=== PATIENT | female | born 1935 | race Caucasian/White ===

== ENCOUNTER 2019-07-08 17:06 | Inpatient (IN) ==
[2019-07-08] MEDS ORDERED: Naloxone 0.4 MG/ML INJ IVP PRN (22:17)
[2019-07-08] MEDS ORDERED: Ondansetron 4 MG/2 ML VIAL IVP PRN (22:17)
[2019-07-08] MEDS ORDERED: 0.9 % Sodium Chloride 1,000 ML IVC ONE (22:20)
[2019-07-08] MEDS ORDERED: *HR* Labetalol 20 MG/4 ML SYRINGE IVP ONE (22:31)
[2019-07-09 00:16] LABS: BUN/Creatinine Ratio 20 (6-26); Blood Urea Nitrogen 19 mg/dL (8-23); Carbon Dioxide 24 mEq/L (23-29); Chloride 104 mEq/L (98-107); Glucose 119 mg/dL (70-105); Osmolality,Calculated 295 (280-300); Potassium 2.5 mEq/L (3.5-5.1); Sodium 141 mEq/L (136-145); eGFR For African Americans > 60 (> 60); eGFR For Non-African Americans 56 (> 60)
[2019-07-09] MEDS ORDERED: Potassium Chloride 40 MEQ, Lidocaine 1% 2 ML in 0.9 % Sodium Chloride 500 ML IVPB ONE (00:21)
[2019-07-09] MEDS ORDERED: Acetaminophen 325 MG TABLET PO PRN (01:59)
[2019-07-09] MEDS ORDERED: Metoclopramide 10 MG/2 ML VIAL IVP PRN (03:45)
[2019-07-09 04:43] LABS: Hematocrit 32.5 % (35.3-44.9); Hemoglobin 10.9 g/dL (11.5-15.4); Mean Corpuscular HGB Conc 33.5 g/dL (31.6-35.5); Mean Corpuscular Hemoglobin 29.9 pg (28.0-33.3); Mean Corpuscular Volume 89.3 fL (83.0-100.0); Mean Platelet Volume 11.7 fL (9.4-12.4); Platelet Count 219 K/mcL (140-400); Red Blood Count 3.64 M/mcL (3.82-4.97); Red Cell Distribution Width 14.6 % (11.5-14.5)
[2019-07-09 05:10] LABS: BUN/Creatinine Ratio 19 (6-26); Blood Urea Nitrogen 19 mg/dL (8-23); Carbon Dioxide 24 mEq/L (23-29); Chloride 104 mEq/L (98-107); Glucose 126 mg/dL (70-105); Osmolality,Calculated 298 (280-300); Potassium 2.8 mEq/L (3.5-5.1); Sodium 142 mEq/L (136-145); Troponin I 0.06 ng/mL (< 0.04); eGFR For African Americans > 60 (> 60); eGFR For Non-African Americans 54 (> 60)
[2019-07-09] MEDS: *HR* Heparin 5,000 UNIT/ML VIAL SQ SCH ×2 (06:42→17:12)
[2019-07-09] MEDS: Pantoprazole 40 MG VIAL IVP SCH ×2 (06:42→17:12)
[2019-07-09] MEDS ORDERED: Potassium Chloride Elixir 20 MEQ/15 ML UDC PO ONE ×2 (08:46→17:00)
[2019-07-09] MEDS: amLODIPine 5 MG TABLET PO SCH (09:24)
[2019-07-09 11:22] LABS: Estimated Average Glucose 103 mg/dl
[2019-07-09] MEDS ORDERED: Simethicone 80 MG TAB.CHEW PO PRN (13:37)
[2019-07-09] MEDS: OLANZapine 5 MG TAB.RAPDIS PO SCH (20:03)
[2019-07-09] MEDS: *HR* LORazepam 0.5 MG TABLET PO SCH (20:03)
[2019-07-10] MEDS: *HR* Heparin 5,000 UNIT/ML VIAL SQ SCH ×2 (05:35→17:29)
[2019-07-10] MEDS: Pantoprazole 40 MG VIAL IVP SCH ×2 (05:36→17:29)
[2019-07-10 06:04] LABS: Bilirubin,Urine Negative (Negative); Blood,Urine Negative (Negative); Clarity,Urine Cloudy (Clear); Color,Urine Yellow (Yellow); Glucose,Urine (UA) Normal (Normal); Ketones,Urine Trace mg/dL (Negative); Leukocyte Esterase,Urine Large (Negative); Nitrite,Urine Negative (Negative); Protein,Urine 30 mg/dL (Neg-Trace); Specific Gravity,Urine 1.015 (1.010-1.025); Urobilinogen,Urine Normal (Normal)
[2019-07-10 06:05] LABS: Bacteria,Urine Many per hpf (None-Few); Hyaline Casts,Urine Few per lpf (None-Few); Squamous Epithelial Cell,Urine Many per lpf (None-Few); WBC,Urine 50-100 per hpf (0-3)
[2019-07-10 06:15] LABS: Mucus,Urine Few per lpf (Few); RBC,Urine 0-3 per hpf (0-3)
[2019-07-10 09:02] LABS: BUN/Creatinine Ratio 19 (6-26); Blood Urea Nitrogen 15 mg/dL (8-23); Calcium 9.2 mg/dL (8.6-10.3); Carbon Dioxide 26 mEq/L (23-29); Chloride 106 mEq/L (98-107); Glucose 108 mg/dL (70-105); Magnesium 1.5 mg/dL (1.6-2.6); Osmolality,Calculated 297 (280-300); Potassium 2.9 mEq/L (3.5-5.1); Sodium 143 mEq/L (136-145); eGFR For African Americans > 60 (> 60); eGFR For Non-African Americans > 60 (> 60)
[2019-07-10] MEDS ORDERED: Potassium Chloride 40 MEQ, Lidocaine 1% 2 ML in 0.9 % Sodium Chloride 500 ML IVPB ONE ×2 (09:22→17:00)
[2019-07-10] MEDS: Loratadine 10 MG TABLET PO SCH (10:10)
[2019-07-10] MEDS: amLODIPine 5 MG TABLET PO SCH (10:10)
[2019-07-10] MEDS: Ondansetron 4 MG/2 ML VIAL IVP SCH ×3 (14:44→23:57)
[2019-07-10] MEDS: Ampicillin/Sulbactam 3,000 MG in 0.9 % Sodium Chloride 100 ML IVPB SCH ×2 (14:45→17:30)
[2019-07-10] MEDS: OLANZapine 5 MG TAB.RAPDIS PO SCH (20:48)
[2019-07-10] MEDS: *HR* LORazepam 0.5 MG TABLET PO SCH (20:48)
[2019-07-11] MEDS: Ampicillin/Sulbactam 3,000 MG in 0.9 % Sodium Chloride 100 ML IVPB SCH ×2 (00:03→05:54)
[2019-07-11 03:10] LABS: BUN/Creatinine Ratio 16 (6-26); Blood Urea Nitrogen 13 mg/dL (8-23); Calcium 8.6 mg/dL (8.6-10.3); Carbon Dioxide 24 mEq/L (23-29); Chloride 112 mEq/L (98-107); Glucose 101 mg/dL (70-105); Magnesium 2.2 mg/dL (1.6-2.6); Osmolality,Calculated 294 (280-300); Potassium 3.5 mEq/L (3.5-5.1); Sodium 142 mEq/L (136-145); eGFR For African Americans > 60 (> 60); eGFR For Non-African Americans > 60 (> 60)
[2019-07-11] MEDS: *HR* Heparin 5,000 UNIT/ML VIAL SQ SCH (05:53)
[2019-07-11] MEDS: Pantoprazole 40 MG VIAL IVP SCH (05:53)
[2019-07-11] MEDS: Ondansetron 4 MG/2 ML VIAL IVP SCH (05:53)
[2019-07-11] MEDS ORDERED: carvediloL 6.25 MG TABLET PO SCH (08:00)
[2019-07-11] MEDS: Loratadine 10 MG TABLET PO SCH (09:15)
[2019-07-11] MEDS: amLODIPine 5 MG TABLET PO SCH (09:15)
[2019-07-11 11:03] VITALS: BP 177/77
[2019-07-11] MEDS ORDERED: Ampicillin/Sulbactam 3,000 MG in 0.9 % Sodium Chloride Mini Bag 100 ML IVPB SCH (18:00)
[2019-07-24] MEDS ORDERED: Cyanocobalamin (B-12) 1,000 MCG/ML VIAL IM SCH (09:00)
== END 2019-07-11 12:36 | disposition home health service (06) ==
LOC: 3BNU → SUATTDRO 19:00
PROVIDERS: ADMIT Internal Medicine; ATTEND Internal Medicine

== ENCOUNTER 2019-07-13 10:33 | Inpatient (IN) ==
[2019-07-13] MEDS ORDERED: Ondansetron 4 MG/2 ML VIAL IVP PRN (16:40)
[2019-07-13] MEDS ORDERED: Acetaminophen 325 MG TABLET PO PRN (16:40)
[2019-07-13] MEDS ORDERED: Naloxone 0.4 MG/ML INJ IVP PRN (16:40)
[2019-07-13 17:27] LABS: Basophils % 0.1 %; Eosinophils % 0.5 %; Hematocrit 31.8 % (35.3-44.9); Hemoglobin 10.7 g/dL (11.5-15.4); Immature Granulocytes % 0.5 % (0-4); Lymphocytes # 1.2 K/mcL (0.6-4.6); Lymphocytes % 16.2 %; Mean Corpuscular HGB Conc 33.6 g/dL (31.6-35.5); Mean Corpuscular Hemoglobin 29.6 pg (28.0-33.3); Mean Corpuscular Volume 88.1 fL (83.0-100.0); Mean Platelet Volume 11.6 fL (9.4-12.4); Monocytes # 0.8 K/mcL (0.0-1.3); Monocytes % 11.2 %; Neutrophils # 5.4 K/mcL (1.6-8.9); Platelet Count 206 K/mcL (140-400); Red Blood Count 3.61 M/mcL (3.82-4.97); Red Cell Distribution Width 14.4 % (11.5-14.5); Segmented Neutrophils % 71.5 %; White Blood Count 7.5 K/mcL (4.3-11.1)
[2019-07-13 17:45] LABS: Magnesium 1.6 mg/dL (1.6-2.6); Phosphorous 1.5 mg/dL (2.7-4.5)
[2019-07-13 17:46] LABS: Albumin 3.3 g/dL (3.5-5.7); Albumin/Globulin Ratio 1.4 (1.1-2.2); BUN/Creatinine Ratio 13 (6-26); Bilirubin,Direct 0.4 mg/dL (0.0-0.2); Bilirubin,Indirect 0.8 mg/dL (0.0-1.0); Bilirubin,Total 1.2 mg/dL (0.3-1.0); Blood Urea Nitrogen 13 mg/dL (8-23); Calcium 8.6 mg/dL (8.6-10.3); Carbon Dioxide 20 mEq/L (23-29); Chloride 104 mEq/L (98-107); Globulin 2.4 g/dL (2.4-3.5); Glucose 112 mg/dL (70-105); Osmolality,Calculated 275 (280-300); Potassium 2.5 mEq/L (3.5-5.1); Sodium 132 mEq/L (136-145); Total Protein 5.7 g/dL (6.4-8.9); eGFR For African Americans > 60 (> 60); eGFR For Non-African Americans 52 (> 60)
[2019-07-13] MEDS ORDERED: Potassium Phosphate 44 MEQ in 0.9 % Sodium Chloride 250 ML IVPB ONE (17:49)
[2019-07-13 17:59] LABS: Thyroid Stimulating Hormone 0.788 mcIU/mL (0.340-5.600)
[2019-07-13] MEDS: Potassium Chloride Elixir 20 MEQ/15 ML UDC PO SCH (21:41)
[2019-07-13 23:03] LABS: Alanine Aminotransferase 16 Units/L (7-52); Albumin 3.2 g/dL (3.5-5.7); Albumin/Globulin Ratio 1.3 (1.1-2.2); Alkaline Phosphatase 55 Units/L (34-104); Aspartate Amino Transferase 16 Units/L (13-39); BUN/Creatinine Ratio 12 (6-26); Bilirubin,Total 1.2 mg/dL (0.3-1.0); Blood Urea Nitrogen 12 mg/dL (8-23); Calcium 8.9 mg/dL (8.6-10.3); Carbon Dioxide 23 mEq/L (23-29); Chloride 105 mEq/L (98-107); Globulin 2.4 g/dL (2.4-3.5); Glucose 90 mg/dL (70-105); Osmolality,Calculated 277 (280-300); Potassium 3.6 mEq/L (3.5-5.1); Sodium 134 mEq/L (136-145); Total Protein 5.6 g/dL (6.4-8.9); eGFR For African Americans > 60 (> 60); eGFR For Non-African Americans 53 (> 60)
[2019-07-13] MEDS: *HR* Heparin 5,000 UNIT/ML VIAL SQ SCH (23:33)
[2019-07-14 05:18] LABS: Eosinophils # 0.4 K/mcL (0.0-0.6); Eosinophils % 5.5 %; Hematocrit 26.9 % (35.3-44.9); Immature Granulocytes % 0.6 % (0-4); Lymphocytes # 1.1 K/mcL (0.6-4.6); Lymphocytes % 15.4 %; Mean Corpuscular HGB Conc 32.7 g/dL (31.6-35.5); Mean Corpuscular Hemoglobin 29.1 pg (28.0-33.3); Mean Corpuscular Volume 89.1 fL (83.0-100.0); Mean Platelet Volume 11.6 fL (9.4-12.4); Monocytes # 0.7 K/mcL (0.0-1.3); Monocytes % 10.3 %; Neutrophils # 4.7 K/mcL (1.6-8.9); Platelet Count 177 K/mcL (140-400); Red Blood Count 3.02 M/mcL (3.82-4.97); Red Cell Distribution Width 14.7 % (11.5-14.5); Segmented Neutrophils % 68.2 %; White Blood Count 6.9 K/mcL (4.3-11.1)
[2019-07-14 05:22] LABS: Hemoglobin 8.8 g/dL (11.5-15.4)
[2019-07-14 05:30] LABS: BUN/Creatinine Ratio 15 (6-26); Blood Urea Nitrogen 13 mg/dL (8-23); Calcium 8.5 mg/dL (8.6-10.3); Carbon Dioxide 23 mEq/L (23-29); Chloride 104 mEq/L (98-107); Glucose 89 mg/dL (70-105); Magnesium 2.2 mg/dL (1.6-2.6); Osmolality,Calculated 280 (280-300); Phosphorous 4.6 mg/dL (2.7-4.5); Potassium 3.2 mEq/L (3.5-5.1); Sodium 135 mEq/L (136-145); eGFR For African Americans > 60 (> 60); eGFR For Non-African Americans > 60 (> 60)
[2019-07-14] MEDS: *HR* Heparin 5,000 UNIT/ML VIAL SQ SCH ×3 (05:33→20:12)
[2019-07-14 05:36] LABS: % Iron Saturation 71 % (15-50); Iron 111 mcg/dL (50-170); Transferrin 111 mg/dL (203-362)
[2019-07-14 05:49] LABS: Ferritin 518 ng/mL (10-120)
[2019-07-14 05:54] LABS: Folate 4.8 ng/mL (3.0-16.0)
[2019-07-14] MEDS: Pantoprazole 40 MG VIAL IVP SCH (10:03)
[2019-07-14] MEDS: Potassium Chloride Elixir 20 MEQ/15 ML UDC PO SCH (10:03)
[2019-07-14 10:21] LABS: Estimated Average Glucose 105 mg/dl
[2019-07-14] MEDS ORDERED: Simethicone 80 MG TAB.CHEW PO PRN (10:51)
[2019-07-14] MEDS ORDERED: Loratadine 10 MG TABLET PO PRN (10:51)
[2019-07-14] MEDS: Cholecalciferol (D-3) 1,000 UNIT (25MCG) TABLET PO SCH (11:39)
[2019-07-14] MEDS ORDERED: E-Z-PAQUE (BARIUM SULF) SUSP 1 BOTTLE PO ONE (12:21)
[2019-07-14] MEDS ORDERED: Simethicone/Sodium Bic/Citr Ac 1 EACH GRAN.EF.PK PO ONE (12:21)
[2019-07-14] MEDS ORDERED: E-Z-HD (BARIUM SULF) SUSPENSION PO ONE (12:21)
[2019-07-14 12:40] LABS: Adenovirus Not Detected (Not Detect); Bordetella Pertussis Not Detected (Not Detect); Chlamydophila pneumoniae Not Detected (Not Detect); Coronavirus 229E Not Detected (Not Detect); Coronavirus HKU1 Not Detected (Not Detect); Coronavirus NL63 Not Detected (Not Detect); Coronavirus OC43 Not Detected (Not Detect); Human Metapneumovirus Not Detected (Not Detect); Human Rhinovirus/Enterovirus Not Detected (Not Detect); Influenza A Subtype 2009 H1 Not Detected (Not Detect); Influenza B Not Detected (Not Detect); Mycoplasma pneumoniae Not Detected (Not Detect); Parainfluenza Virus 1 Not Detected (Not Detect); Parainfluenza Virus 2 Not Detected (Not Detect); Parainfluenza Virus 3 Not Detected (Not Detect); Parainfluenza Virus 4 Not Detected (Not Detect); Respiratory Syncytial Virus Not Detected (Not Detect)
[2019-07-14] MEDS: carvediloL 6.25 MG TABLET PO SCH (17:51)
[2019-07-14] MEDS: OLANZapine 5 MG TAB.RAPDIS PO SCH (20:13)
[2019-07-14] MEDS: *HR* LORazepam 0.5 MG TABLET PO SCH (20:13)
[2019-07-15 03:36] LABS: Basophils % 0.2 %; Eosinophils # 0.5 K/mcL (0.0-0.6); Eosinophils % 9.5 %; Hematocrit 27.1 % (35.3-44.9); Hemoglobin 8.9 g/dL (11.5-15.4); Lymphocytes # 0.8 K/mcL (0.6-4.6); Mean Corpuscular HGB Conc 32.8 g/dL (31.6-35.5); Mean Corpuscular Hemoglobin 29.9 pg (28.0-33.3); Mean Corpuscular Volume 90.9 fL (83.0-100.0); Mean Platelet Volume 11.3 fL (9.4-12.4); Monocytes # 0.5 K/mcL (0.0-1.3); Monocytes % 9.3 %; Neutrophils # 3.3 K/mcL (1.6-8.9); Platelet Count 153 K/mcL (140-400); Red Blood Count 2.98 M/mcL (3.82-4.97); Red Cell Distribution Width 14.8 % (11.5-14.5); White Blood Count 5.1 K/mcL (4.3-11.1)
[2019-07-15 03:56] LABS: BUN/Creatinine Ratio 14 (6-26); Blood Urea Nitrogen 11 mg/dL (8-23); Calcium 8.9 mg/dL (8.6-10.3); Carbon Dioxide 24 mEq/L (23-29); Chloride 110 mEq/L (98-107); Glucose 83 mg/dL (70-105); Magnesium 1.9 mg/dL (1.6-2.6); Osmolality,Calculated 281 (280-300); Sodium 136 mEq/L (136-145); eGFR For African Americans > 60 (> 60); eGFR For Non-African Americans > 60 (> 60)
[2019-07-15] MEDS: *HR* Heparin 5,000 UNIT/ML VIAL SQ SCH ×3 (04:52→20:20)
[2019-07-15] MEDS: carvediloL 6.25 MG TABLET PO SCH ×2 (09:22→16:51)
[2019-07-15] MEDS: Pantoprazole 40 MG VIAL IVP SCH (09:23)
[2019-07-15] MEDS: Cholecalciferol (D-3) 1,000 UNIT (25MCG) TABLET PO SCH (09:23)
[2019-07-15] MEDS: *HR* LORazepam 0.5 MG TABLET PO SCH (20:20)
[2019-07-15] MEDS: Mirtazapine 15 MG TABLET PO SCH (20:20)
[2019-07-15] MEDS: OLANZapine 5 MG TAB.RAPDIS PO SCH (20:20)
[2019-07-16] MEDS: *HR* Heparin 5,000 UNIT/ML VIAL SQ SCH ×3 (04:19→20:25)
[2019-07-16 04:52] LABS: Basophils % 0.4 %; Eosinophils # 0.5 K/mcL (0.0-0.6); Eosinophils % 7.9 %; Hematocrit 29.4 % (35.3-44.9); Hemoglobin 9.6 g/dL (11.5-15.4); Immature Granulocytes % 1.2 % (0-4); Lymphocytes % 17.2 %; Mean Corpuscular HGB Conc 32.7 g/dL (31.6-35.5); Mean Corpuscular Hemoglobin 29.7 pg (28.0-33.3); Mean Platelet Volume 11.8 fL (9.4-12.4); Monocytes # 0.6 K/mcL (0.0-1.3); Monocytes % 11.2 %; Neutrophils # 3.5 K/mcL (1.6-8.9); Platelet Count 182 K/mcL (140-400); Red Blood Count 3.23 M/mcL (3.82-4.97); Red Cell Distribution Width 14.7 % (11.5-14.5); Segmented Neutrophils % 62.1 %; White Blood Count 5.7 K/mcL (4.3-11.1)
[2019-07-16 05:06] LABS: BUN/Creatinine Ratio 11 (6-26); Blood Urea Nitrogen 10 mg/dL (8-23); Calcium 9.4 mg/dL (8.6-10.3); Carbon Dioxide 25 mEq/L (23-29); Chloride 107 mEq/L (98-107); Glucose 81 mg/dL (70-105); Magnesium 1.8 mg/dL (1.6-2.6); Osmolality,Calculated 286 (280-300); Potassium 3.7 mEq/L (3.5-5.1); Sodium 139 mEq/L (136-145); eGFR For African Americans > 60 (> 60); eGFR For Non-African Americans 58 (> 60)
[2019-07-16] MEDS: carvediloL 6.25 MG TABLET PO SCH ×2 (07:16→16:36)
[2019-07-16] MEDS: Cholecalciferol (D-3) 1,000 UNIT (25MCG) TABLET PO SCH (07:16)
[2019-07-16] MEDS: Pantoprazole 40 MG VIAL IVP SCH (07:16)
[2019-07-16] MEDS ORDERED: Ringers Solution, Lactated 1,000 ML ONE (10:01)
[2019-07-16] MEDS ORDERED: *HR* Heparin 5,000 UNIT/ML VIAL ONE (12:49)
[2019-07-16 19:20] LABS: Basophils % 0.5 %; Eosinophils # 0.4 K/mcL (0.0-0.6); Eosinophils % 7.2 %; Hematocrit 26.3 % (35.3-44.9); Hemoglobin 8.7 g/dL (11.5-15.4); Immature Granulocytes % 0.8 % (0-4); Lymphocytes # 1.1 K/mcL (0.6-4.6); Lymphocytes % 18.7 %; Mean Corpuscular HGB Conc 33.1 g/dL (31.6-35.5); Mean Corpuscular Hemoglobin 30.4 pg (28.0-33.3); Mean Platelet Volume 11.8 fL (9.4-12.4); Monocytes # 0.5 K/mcL (0.0-1.3); Monocytes % 8.7 %; Neutrophils # 3.9 K/mcL (1.6-8.9); Platelet Count 192 K/mcL (140-400); Red Blood Count 2.86 M/mcL (3.82-4.97); Red Cell Distribution Width 14.6 % (11.5-14.5); Segmented Neutrophils % 64.1 %; White Blood Count 6.1 K/mcL (4.3-11.1)
[2019-07-16 19:54] LABS: BUN/Creatinine Ratio 10 (6-26); Blood Urea Nitrogen 10 mg/dL (8-23); Calcium 8.5 mg/dL (8.6-10.3); Carbon Dioxide 23 mEq/L (23-29); Chloride 106 mEq/L (98-107); Glucose 333 mg/dL (70-105); Magnesium 1.9 mg/dL (1.6-2.6); Osmolality,Calculated 290 (280-300); Potassium 3.8 mEq/L (3.5-5.1); Sodium 134 mEq/L (136-145); eGFR For African Americans > 60 (> 60); eGFR For Non-African Americans 51 (> 60)
[2019-07-16 19:55] LABS: Phosphorous 3.3 mg/dL (2.7-4.5); Troponin I < 0.03 ng/mL (< 0.04)
[2019-07-16] MEDS: Mirtazapine 15 MG TABLET PO SCH (20:25)
[2019-07-16] MEDS: OLANZapine 5 MG TAB.RAPDIS PO SCH (20:25)
[2019-07-16] MEDS: *HR* LORazepam 0.5 MG TABLET PO SCH (20:25)
[2019-07-17 02:12] LABS: Bilirubin,Urine Negative (Negative); Blood,Urine Negative (Negative); Clarity,Urine Clear (Clear); Color,Urine Yellow (Yellow); Glucose,Urine (UA) Normal (Normal); Ketones,Urine Negative (Negative); Leukocyte Esterase,Urine Large (Negative); Nitrite,Urine Negative (Negative); Protein,Urine Negative (Neg-Trace); Specific Gravity,Urine 1.006 (1.010-1.025); Urobilinogen,Urine Normal (Normal)
[2019-07-17 02:15] LABS: Bacteria,Urine None Seen per hpf (None-Few); Hyaline Casts,Urine None Seen per lpf (None-Few); RBC,Urine 0-3 per hpf (0-3); Squamous Epithelial Cell,Urine Many per lpf (None-Few); WBC,Urine 15-30 per hpf (0-3)
[2019-07-17 04:00] LABS: Basophils % 0.3 %; Eosinophils # 0.4 K/mcL (0.0-0.6); Hematocrit 28.4 % (35.3-44.9); Hemoglobin 9.4 g/dL (11.5-15.4); Immature Granulocytes % 0.7 % (0-4); Lymphocytes % 16.9 %; Mean Corpuscular HGB Conc 33.1 g/dL (31.6-35.5); Mean Corpuscular Hemoglobin 29.7 pg (28.0-33.3); Mean Corpuscular Volume 89.9 fL (83.0-100.0); Mean Platelet Volume 11.2 fL (9.4-12.4); Monocytes # 0.6 K/mcL (0.0-1.3); Monocytes % 10.2 %; Neutrophils # 3.8 K/mcL (1.6-8.9); Platelet Count 199 K/mcL (140-400); Red Blood Count 3.16 M/mcL (3.82-4.97); Red Cell Distribution Width 14.7 % (11.5-14.5); Segmented Neutrophils % 65.9 %; White Blood Count 5.8 K/mcL (4.3-11.1)
[2019-07-17 04:22] LABS: BUN/Creatinine Ratio 8 (6-26); Blood Urea Nitrogen 8 mg/dL (8-23); Calcium 9.4 mg/dL (8.6-10.3); Carbon Dioxide 25 mEq/L (23-29); Chloride 108 mEq/L (98-107); Glucose 104 mg/dL (70-105); Magnesium 1.8 mg/dL (1.6-2.6); Osmolality,Calculated 287 (280-300); Potassium 3.4 mEq/L (3.5-5.1); Sodium 139 mEq/L (136-145); eGFR For African Americans > 60 (> 60); eGFR For Non-African Americans 51 (> 60)
[2019-07-17] MEDS: *HR* Heparin 5,000 UNIT/ML VIAL SQ SCH ×3 (09:51→20:22)
[2019-07-17] MEDS: Losartan/HCTZ 50-12.5 TABLET PO SCH (09:51)
[2019-07-17] MEDS: Pantoprazole 40 MG VIAL IVP SCH (09:52)
[2019-07-17] MEDS: Cholecalciferol (D-3) 1,000 UNIT (25MCG) TABLET PO SCH (09:52)
[2019-07-17] MEDS: carvediloL 6.25 MG TABLET PO SCH ×2 (09:52→17:30)
[2019-07-17 10:36] LABS: Bilirubin,Urine Negative (Negative); Blood,Urine Negative (Negative); Clarity,Urine Clear (Clear); Color,Urine Yellow (Yellow); Glucose,Urine (UA) Normal (Normal); Ketones,Urine Negative (Negative); Leukocyte Esterase,Urine Large (Negative); Nitrite,Urine Negative (Negative); PH,Urine 6.5 pH Units (5.0-8.0); Protein,Urine Trace mg/dL (Neg-Trace); Specific Gravity,Urine 1.007 (1.010-1.025); Urobilinogen,Urine Normal (Normal)
[2019-07-17 10:40] LABS: Bacteria,Urine None Seen per hpf (None-Few); Hyaline Casts,Urine None Seen per lpf (None-Few)
[2019-07-17 11:01] LABS: Squamous Epithelial Cell,Urine Few per lpf (None-Few)
[2019-07-17] MEDS ORDERED: levoFLOXacin 500 MG/100 ML 500 MG/100 ML BAG IVPB SCH (15:00)
[2019-07-17] MEDS ORDERED: *HR* LORazepam 2 MG/ML VIAL IVP ONE (19:52)
[2019-07-17] MEDS: OLANZapine 5 MG TAB.RAPDIS PO SCH (20:22)
[2019-07-17] MEDS: Mirtazapine 15 MG TABLET PO SCH (20:22)
[2019-07-17] MEDS: *HR* LORazepam 0.5 MG TABLET PO SCH (20:23)
[2019-07-17] MEDS ORDERED: Haloperidol Lactate 5 MG/ML VIAL IVP ONE (21:44)
[2019-07-17] MEDS ORDERED: *HR* Promethazine 25 MG/ML VIAL IVP ONE (22:15)
[2019-07-18] MEDS ORDERED: Haloperidol Lactate 5 MG/ML VIAL IVP ONE (03:59)
[2019-07-18] MEDS ORDERED: *HR* Promethazine 25 MG/ML VIAL IVP ONE (04:00)
[2019-07-18] MEDS: *HR* Heparin 5,000 UNIT/ML VIAL SQ SCH ×4 (04:11→23:38)
[2019-07-18 04:23] LABS: Basophils % 0.3 %; Eosinophils # 0.4 K/mcL (0.0-0.6); Eosinophils % 5.2 %; Immature Granulocytes % 0.4 % (0-4); Lymphocytes # 1.1 K/mcL (0.6-4.6); Lymphocytes % 14.4 %; Mean Corpuscular HGB Conc 32.3 g/dL (31.6-35.5); Mean Corpuscular Hemoglobin 29.6 pg (28.0-33.3); Mean Corpuscular Volume 91.7 fL (83.0-100.0); Mean Platelet Volume 11.2 fL (9.4-12.4); Monocytes # 0.6 K/mcL (0.0-1.3); Neutrophils # 5.3 K/mcL (1.6-8.9); Platelet Count 237 K/mcL (140-400); Red Blood Count 3.38 M/mcL (3.82-4.97); Red Cell Distribution Width 15.2 % (11.5-14.5); Segmented Neutrophils % 71.7 %; White Blood Count 7.4 K/mcL (4.3-11.1)
[2019-07-18 04:37] LABS: Magnesium 1.9 mg/dL (1.6-2.6)
[2019-07-18] MEDS: Pantoprazole 40 MG VIAL IVP SCH (08:58)
[2019-07-18] MEDS ORDERED: *HR* Labetalol 20 MG/4 ML SYRINGE IVP PRN (10:48)
[2019-07-18] MEDS: Losartan/HCTZ 50-12.5 TABLET PO SCH (12:33)
[2019-07-18] MEDS: carvediloL 6.25 MG TABLET PO SCH ×2 (12:33→20:02)
[2019-07-18] MEDS: Megestrol Acetate 400 MG/10 ML UDC PO SCH (12:33)
[2019-07-18] MEDS: OLANZapine 5 MG TAB.RAPDIS PO SCH (12:34)
[2019-07-18] MEDS: Cholecalciferol (D-3) 1,000 UNIT (25MCG) TABLET PO SCH (12:34)
[2019-07-18] MEDS: *HR* LORazepam 0.5 MG TABLET PO SCH (23:34)
[2019-07-18] MEDS: Mirtazapine 15 MG TABLET PO SCH (23:35)
[2019-07-19] MEDS: *HR* Heparin 5,000 UNIT/ML VIAL SQ SCH ×3 (05:32→21:00)
[2019-07-19 06:50] LABS: Basophils % 0.4 %; Eosinophils # 0.2 K/mcL (0.0-0.6); Eosinophils % 3.1 %; Hemoglobin 10.2 g/dL (11.5-15.4); Immature Granulocytes % 0.7 % (0-4); Lymphocytes # 0.9 K/mcL (0.6-4.6); Lymphocytes % 12.4 %; Mean Corpuscular HGB Conc 31.9 g/dL (31.6-35.5); Mean Corpuscular Hemoglobin 29.7 pg (28.0-33.3); Mean Corpuscular Volume 93.3 fL (83.0-100.0); Mean Platelet Volume 11.7 fL (9.4-12.4); Monocytes # 0.6 K/mcL (0.0-1.3); Monocytes % 7.7 %; Neutrophils # 5.7 K/mcL (1.6-8.9); Platelet Count 194 K/mcL (140-400); Red Blood Count 3.43 M/mcL (3.82-4.97); Red Cell Distribution Width 15.8 % (11.5-14.5); Segmented Neutrophils % 75.7 %; White Blood Count 7.5 K/mcL (4.3-11.1)
[2019-07-19 07:11] LABS: Calcium 9.4 mg/dL (8.6-10.3); Magnesium 1.7 mg/dL (1.6-2.6); Potassium 3.8 mEq/L (3.5-5.1)
[2019-07-19] MEDS ORDERED: Sodium Bicarbonate 150 MEQ in D5% in Water 1,000 ML IVC SCH (07:30)
[2019-07-19] MEDS: Cholecalciferol (D-3) 1,000 UNIT (25MCG) TABLET PO SCH (11:06)
[2019-07-19] MEDS: OLANZapine 5 MG TAB.RAPDIS PO SCH (11:06)
[2019-07-19] MEDS: carvediloL 6.25 MG TABLET PO SCH ×2 (11:06→16:56)
[2019-07-19] MEDS: Megestrol Acetate 400 MG/10 ML UDC PO SCH (11:06)
[2019-07-19] MEDS: Losartan/HCTZ 50-12.5 TABLET PO SCH (11:07)
[2019-07-19 18:27] LABS: Calcium 8.6 mg/dL (8.6-10.3)
[2019-07-19] MEDS: Mirtazapine 15 MG TABLET PO SCH (21:06)
[2019-07-19] MEDS: *HR* LORazepam 0.5 MG TABLET PO SCH (21:07)
[2019-07-20 03:12] LABS: Basophils % 0.4 %; Eosinophils # 0.2 K/mcL (0.0-0.6); Eosinophils % 3.9 %; Hemoglobin 9.4 g/dL (11.5-15.4); Immature Granulocytes % 0.5 % (0-4); Lymphocytes # 0.8 K/mcL (0.6-4.6); Lymphocytes % 14.4 %; Mean Corpuscular HGB Conc 33.6 g/dL (31.6-35.5); Mean Corpuscular Hemoglobin 30.5 pg (28.0-33.3); Mean Corpuscular Volume 90.9 fL (83.0-100.0); Monocytes # 0.4 K/mcL (0.0-1.3); Monocytes % 6.4 %; Neutrophils # 4.2 K/mcL (1.6-8.9); Platelet Count 114 K/mcL (140-400); Red Blood Count 3.08 M/mcL (3.82-4.97); Red Cell Distribution Width 15.4 % (11.5-14.5); Segmented Neutrophils % 74.4 %; White Blood Count 5.6 K/mcL (4.3-11.1)
[2019-07-20 03:27] LABS: Calcium 8.5 mg/dL (8.6-10.3); Magnesium 1.5 mg/dL (1.6-2.6); Potassium 3.2 mEq/L (3.5-5.1)
[2019-07-20] MEDS: *HR* Heparin 5,000 UNIT/ML VIAL SQ SCH ×3 (05:33→20:52)
[2019-07-20] MEDS ORDERED: Potassium Chloride 40 MEQ, Lidocaine 1% 2 ML in 0.9 % Sodium Chloride 500 ML IVPB ONE (08:08)
[2019-07-20] MEDS: 0.9 % Sodium Chloride 1,000 ML IVC SCH ×2 (08:25→19:24)
[2019-07-20] MEDS: Cholecalciferol (D-3) 1,000 UNIT (25MCG) TABLET PO SCH (08:30)
[2019-07-20] MEDS: Megestrol Acetate 400 MG/10 ML UDC PO SCH (08:30)
[2019-07-20] MEDS: OLANZapine 5 MG TAB.RAPDIS PO SCH (08:30)
[2019-07-20] MEDS: Sennosides/Docusate Sodium TABLET PO SCH ×2 (08:30→19:24)
[2019-07-20] MEDS: polyethylene glycoL 3350 17 GM POWD.PACK PO SCH ×2 (08:30→19:24)
[2019-07-20] MEDS: carvediloL 6.25 MG TABLET PO SCH ×2 (08:30→16:08)
[2019-07-20] MEDS: *HR* LORazepam 0.5 MG TABLET PO PRN (16:08)
[2019-07-20] MEDS ORDERED: Hydrocortisone Sodium Succ 100 MG/2 ML VIAL IVP ONE (16:50)
[2019-07-20] MEDS: Mirtazapine 15 MG TABLET PO SCH (19:24)
[2019-07-20] MEDS: *HR* LORazepam 0.5 MG TABLET PO SCH (19:24)
[2019-07-21 05:15] LABS: Basophils % 0.6 %; Eosinophils # 0.1 K/mcL (0.0-0.6); Eosinophils % 1.4 %; Hematocrit 31.4 % (35.3-44.9); Hemoglobin 10.4 g/dL (11.5-15.4); Immature Granulocytes % 0.6 % (0-4); Lymphocytes # 0.8 K/mcL (0.6-4.6); Lymphocytes % 16.8 %; Mean Corpuscular HGB Conc 33.1 g/dL (31.6-35.5); Mean Corpuscular Hemoglobin 30.1 pg (28.0-33.3); Mean Platelet Volume 11.6 fL (9.4-12.4); Monocytes # 0.6 K/mcL (0.0-1.3); Monocytes % 11.6 %; Neutrophils # 3.3 K/mcL (1.6-8.9); Platelet Count 206 K/mcL (140-400); Red Blood Count 3.45 M/mcL (3.82-4.97); Red Cell Distribution Width 15.2 % (11.5-14.5); White Blood Count 4.8 K/mcL (4.3-11.1)
[2019-07-21 05:29] LABS: Calcium 9.2 mg/dL (8.6-10.3); Magnesium 1.7 mg/dL (1.6-2.6); Potassium 3.4 mEq/L (3.5-5.1)
[2019-07-21] MEDS: *HR* Heparin 5,000 UNIT/ML VIAL SQ SCH ×3 (05:49→21:20)
[2019-07-21] MEDS: polyethylene glycoL 3350 17 GM POWD.PACK PO SCH ×2 (07:24→21:21)
[2019-07-21] MEDS: Cholecalciferol (D-3) 1,000 UNIT (25MCG) TABLET PO SCH (07:24)
[2019-07-21] MEDS: Sennosides/Docusate Sodium TABLET PO SCH ×2 (07:24→21:20)
[2019-07-21] MEDS: *HR* LORazepam 0.5 MG TABLET PO PRN (07:25)
[2019-07-21] MEDS: OLANZapine 5 MG TAB.RAPDIS PO SCH (07:25)
[2019-07-21] MEDS: Megestrol Acetate 400 MG/10 ML UDC PO SCH (07:26)
[2019-07-21] MEDS: carvediloL 6.25 MG TABLET PO SCH ×2 (07:42→17:30)
[2019-07-21] MEDS: 0.9 % Sodium Chloride w KCl 40 MEQ/1,000 ML MLS IVC SCH ×2 (07:44→18:19)
[2019-07-21] MEDS: *HR* LORazepam 0.5 MG TABLET PO SCH (21:20)
[2019-07-21] MEDS: Mirtazapine 15 MG TABLET PO SCH (21:21)
[2019-07-22] MEDS: *HR* Heparin 5,000 UNIT/ML VIAL SQ SCH ×3 (05:40→21:48)
[2019-07-22 07:20] LABS: Calcium 9.3 mg/dL (8.6-10.3); Potassium 4.5 mEq/L (3.5-5.1)
[2019-07-22] MEDS ORDERED: *HR* LORazepam 0.5 MG TABLET PO PRN (08:00)
[2019-07-22] MEDS: 0.9 % Sodium Chloride 1,000 ML IVC SCH ×2 (08:58→19:35)
[2019-07-22] MEDS: polyethylene glycoL 3350 17 GM POWD.PACK PO SCH ×2 (08:59→21:46)
[2019-07-22] MEDS: Megestrol Acetate 400 MG/10 ML UDC PO SCH (08:59)
[2019-07-22] MEDS: Sennosides/Docusate Sodium TABLET PO SCH ×2 (08:59→21:47)
[2019-07-22] MEDS: carvediloL 6.25 MG TABLET PO SCH ×2 (08:59→17:21)
[2019-07-22] MEDS: OLANZapine 5 MG TAB.RAPDIS PO SCH (09:00)
[2019-07-22] MEDS: Cholecalciferol (D-3) 1,000 UNIT (25MCG) TABLET PO SCH (09:00)
[2019-07-22] MEDS: Thiamine (B-1) 100 MG TABLET PO SCH (09:00)
[2019-07-22] MEDS: Mirtazapine 15 MG TABLET PO SCH (21:48)
[2019-07-22] MEDS: *HR* LORazepam 0.5 MG TABLET PO SCH (21:48)
[2019-07-23] MEDS: *HR* Heparin 5,000 UNIT/ML VIAL SQ SCH ×3 (05:37→20:14)
[2019-07-23] MEDS: polyethylene glycoL 3350 17 GM POWD.PACK PO SCH ×2 (09:06→20:13)
[2019-07-23] MEDS: Sennosides/Docusate Sodium TABLET PO SCH ×2 (09:06→20:14)
[2019-07-23] MEDS: Thiamine (B-1) 100 MG TABLET PO SCH (09:06)
[2019-07-23] MEDS: Megestrol Acetate 400 MG/10 ML UDC PO SCH (09:06)
[2019-07-23] MEDS: carvediloL 6.25 MG TABLET PO SCH ×2 (09:06→16:43)
[2019-07-23] MEDS: Cholecalciferol (D-3) 1,000 UNIT (25MCG) TABLET PO SCH (09:06)
[2019-07-23] MEDS: OLANZapine 5 MG TAB.RAPDIS PO SCH (09:06)
[2019-07-23 09:25] LABS: Calcium 8.9 mg/dL (8.6-10.3); Potassium 3.4 mEq/L (3.5-5.1)
[2019-07-23] MEDS ORDERED: 0.9 % Sodium Chloride w KCl 40 MEQ/1,000 ML MLS IVC SCH (10:15)
[2019-07-23] MEDS: *HR* LORazepam 0.5 MG TABLET PO SCH (20:13)
[2019-07-23] MEDS: Mirtazapine 15 MG TABLET PO SCH (20:14)
[2019-07-24] MEDS: *HR* Heparin 5,000 UNIT/ML VIAL SQ SCH ×3 (05:10→21:07)
[2019-07-24 06:20] LABS: Calcium 8.5 mg/dL (8.6-10.3); Potassium 3.2 mEq/L (3.5-5.1)
[2019-07-24] MEDS ORDERED: Potassium Chloride 40 MEQ, Lidocaine 1% 2 ML in 0.9 % Sodium Chloride 500 ML IVPB ONE (07:23)
[2019-07-24] MEDS ORDERED: Ringers Solution, Lactated 1,000 ML IVC SCH (07:30)
[2019-07-24] MEDS: OLANZapine 5 MG TAB.RAPDIS PO SCH (09:09)
[2019-07-24] MEDS: Sennosides/Docusate Sodium TABLET PO SCH ×2 (09:09→21:07)
[2019-07-24] MEDS: Megestrol Acetate 400 MG/10 ML UDC PO SCH (09:09)
[2019-07-24] MEDS: carvediloL 6.25 MG TABLET PO SCH ×2 (09:09→15:55)
[2019-07-24] MEDS: Cholecalciferol (D-3) 1,000 UNIT (25MCG) TABLET PO SCH (09:09)
[2019-07-24] MEDS: Thiamine (B-1) 100 MG TABLET PO SCH (09:09)
[2019-07-24] MEDS: polyethylene glycoL 3350 17 GM POWD.PACK PO SCH ×2 (09:09→21:07)
[2019-07-24] MEDS ORDERED: 0.9 % Sodium Chloride 250 ML IVC ONE (20:44)
[2019-07-24] MEDS ORDERED: Mirtazapine 15 MG TABLET PO SCH (21:00)
[2019-07-24] MEDS: *HR* LORazepam 0.5 MG TABLET PO SCH (22:26)
[2019-07-25] MEDS: *HR* Heparin 5,000 UNIT/ML VIAL SQ SCH (05:57)
[2019-07-25 07:11] VITALS: BP 137/71
[2019-07-25 08:26] LABS: Calcium 8.7 mg/dL (8.6-10.3); Potassium 3.8 mEq/L (3.5-5.1)
[2019-07-25] MEDS: OLANZapine 5 MG TAB.RAPDIS PO SCH (09:10)
[2019-07-25] MEDS: polyethylene glycoL 3350 17 GM POWD.PACK PO SCH (09:10)
[2019-07-25] MEDS: carvediloL 6.25 MG TABLET PO SCH (09:10)
[2019-07-25] MEDS: Thiamine (B-1) 100 MG TABLET PO SCH (09:10)
[2019-07-25] MEDS: Cholecalciferol (D-3) 1,000 UNIT (25MCG) TABLET PO SCH (09:10)
[2019-07-25] MEDS: Megestrol Acetate 400 MG/10 ML UDC PO SCH (09:10)
[2019-07-25] MEDS: Sennosides/Docusate Sodium TABLET PO SCH (09:11)
[2019-07-28] MEDS ORDERED: Cyanocobalamin (B-12) 1,000 MCG/ML VIAL IM PRN (09:00)
== END 2019-07-25 13:27 | DRG 391 ==
LOC: 2ANU → SUATTDRO 15:52 → 2ANU 07-14 16:31
PROVIDERS: ADMIT Family Medicine; ATTEND Internal Medicine